=== PATIENT | female | born 1955 | race Caucasian/White ===

== ENCOUNTER → 2017-05-07 | Outpatient (CLI) | payer OTHER ==
[~2017-05-07] MED LIST: AMLO2.5T PO; CEPH-460 PO; CITA20TA4 PO; IBUP800T23 PO; LISI20TA PO; PRED-503 PO
[2017-05-07 09:22] LABS: BLOOD, URINE NEG (NEG); GLUCOSE,URINE NEG (NEG); KETONE, URINE NEG (NEG); NITRITE,URINE NEG (NEG); PH, URINE 6.5 (5.0-8.5); SQUAMOUS EPITHELIAL CELL URINE <1 /hpf (0-5); URINE COLOR COLORLESS (YELLW/STRAW)
[2017-05-07 09:23] LABS: COMMENT (UR) CULT NOT INDICATED; CULTURE IF INDICATED CULT NOT INDICATED
[2017-05-07 09:28] LABS: AUTOMATED NEUTROPHIL # 2.6 TH/MM3 (1.8-7.7); BASOPHIL # 0.1 TH/MM3 (0-0.2); BASOPHIL % 2.5 % (0.0-2.0); EOSINOPHIL # 0.2 TH/MM3 (0-0.4); EOSINOPHIL % 3.9 % (0.0-4.0); HEMATOCRIT 39.1 % (35.0-46.0); HEMO FLAGS DIFF FINAL; LYMPH % 35.9 % (9.0-44.0); LYMPHOCYTE # 1.8 TH/MM3 (1.0-4.8); MEAN CELL VOLUME 85.4 FL (80.0-100.0); MEAN CORPUSCULAR HEMOGLOBIN 28.3 PG (27.0-34.0); MEAN CORPUSCULAR HGB CONC 33.2 % (32.0-36.0); MONO % 4.9 % (0.0-8.0); NEUT % 52.8 % (16.0-70.0); PLATELET COUNT 224 TH/MM3 (150-450); RED BLOOD COUNT 4.57 MIL/MM3 (4.00-5.30); RED CELL DISTRIBUTION WIDTH 13.7 % (11.6-17.2)
[2017-05-07 09:53] LABS: ANION GAP 4 MEQ/L (5-15); AST (GOT) 14 U/L (15-37); BLOOD UREA NITROGEN 19 MG/DL (7-18); CHLORIDE 107 MEQ/L (98-107); GLOMERULAR FILTRATION RATE 91 ML/MIN (>89); GLUCOSE,FASTING 106 MG/DL (74-99); POTASSIUM 3.9 MEQ/L (3.5-5.1); SODIUM (NA) 140 MEQ/L (136-145)
[2017-05-07 10:04] LABS: ALKALINE PHOSPHATASE 49 U/L (45-117); ALT (GPT) 23 U/L (10-53); FREE T4 0.85 NG/DL (0.76-1.46); LDL CHOLESTEROL 139 MG/DL (0-99); TOTAL BILIRUBIN ADULT 0.7 MG/DL (0.2-1.0)
== END ==
LOC: CLAB 08:50
PROVIDERS: ATTEND Nurse Practitioner Family
DX: F41.9 Anxiety disorder, unspecified (principal); I10 Essential (primary) hypertension
CPT/HCPCS: 36415; 80053; 80061; 81001; 84439; 84443; 85025; 86803

== ENCOUNTER → 2017-10-15 | Outpatient (CLI) | payer OTHER ==
[~2017-10-15] MED LIST changes: +AMLO5TAB2 PO; +IBUP1TAB7 PO; -IBUP800T23 PO; +PRAV20TA2 PO
[2017-10-15 10:27] LABS: PROTHROMBIN TIME - PATIENT 10.3 SEC (9.8-11.6)
[2017-10-15 10:27] LABS: AUTOMATED NEUTROPHIL # 2.8 TH/MM3 (1.8-7.7); BASOPHIL % 0.6 % (0.0-2.0); EOSINOPHIL # 0.2 TH/MM3 (0-0.4); EOSINOPHIL % 4.5 % (0.0-4.0); HEMOGLOBIN 12.9 GM/DL (11.6-15.3); LYMPH % 31.5 % (9.0-44.0); LYMPHOCYTE # 1.5 TH/MM3 (1.0-4.8); MEAN CELL VOLUME 86.1 FL (80.0-100.0); MEAN CORPUSCULAR HEMOGLOBIN 28.4 PG (27.0-34.0); MEAN PLATELET VOLUME 9.6 FL (7.0-11.0); MONO % 5.3 % (0.0-8.0); MONOCYTE # 0.3 TH/MM3 (0-0.9); NEUT % 58.1 % (16.0-70.0); PLATELET COUNT 249 TH/MM3 (150-450); RED BLOOD COUNT 4.52 MIL/MM3 (4.00-5.30); RED CELL DISTRIBUTION WIDTH 13.3 % (11.6-17.2); WHITE BLOOD COUNT 4.7 TH/MM3 (4.0-11.0)
[2017-10-15 11:11] LABS: BICARBONATE 28.9 MEQ/L (21.0-32.0); CALCIUM 8.9 MG/DL (8.5-10.1); CREATININE 0.72 MG/DL (0.50-1.00)
== END ==
LOC: CLAB 09:48
PROVIDERS: ATTEND Nurse Practitioner Family
DX: Z01.818 Encounter for other preprocedural examination (principal)
CPT/HCPCS: 36415; 80048; 85025; 85610; 85730

== ENCOUNTER → 2017-10-29 | Outpatient (CLI) | payer OTHER ==
[2017-10-29 09:29] LABS: AUTOMATED NEUTROPHIL # 3.4 TH/MM3 (1.8-7.7); BASOPHIL # 0.1 TH/MM3 (0-0.2); BASOPHIL % 1.3 % (0.0-2.0); EOSINOPHIL # 0.3 TH/MM3 (0-0.4); EOSINOPHIL % 4.7 % (0.0-4.0); HEMATOCRIT 39.7 % (35.0-46.0); HEMOGLOBIN 13.2 GM/DL (11.6-15.3); LYMPH % 29.4 % (9.0-44.0); LYMPHOCYTE # 1.7 TH/MM3 (1.0-4.8); MEAN CELL VOLUME 85.8 FL (80.0-100.0); MEAN CORPUSCULAR HEMOGLOBIN 28.5 PG (27.0-34.0); MEAN CORPUSCULAR HGB CONC 33.2 % (32.0-36.0); MEAN PLATELET VOLUME 9.1 FL (7.0-11.0); MONO % 4.7 % (0.0-8.0); MONOCYTE # 0.3 TH/MM3 (0-0.9); NEUT % 59.9 % (16.0-70.0); PLATELET COUNT 238 TH/MM3 (150-450); RED BLOOD COUNT 4.63 MIL/MM3 (4.00-5.30); RED CELL DISTRIBUTION WIDTH 13.5 % (11.6-17.2); WHITE BLOOD COUNT 5.7 TH/MM3 (4.0-11.0)
[2017-10-29 09:33] LABS: BACTERIA, URINE MANY /hpf; BILIRUBIN, URINE NEG (NEG); BLOOD, URINE NEG (NEG); GLUCOSE,URINE NEG (NEG); KETONE, URINE NEG (NEG); MUCUS URINE FEW /lpf (OCC); NITRITE,URINE NEG (NEG); SQUAMOUS EPITHELIAL CELL URINE 1 /hpf (0-5); URINE COLOR YELLOW (YELLW/STRAW); URINE LEUKOCYTE ESTERASE NEG (NEG)
[2017-10-29 09:47] LABS: BICARBONATE 29.5 MEQ/L (21.0-32.0); CREATININE 0.7 MG/DL (0.50-1.00)
--- NOTE | 2017-10-29 10:03 | RADRPT ---
EXAM DATE/TIME: 10/29/2017 09:28 [facility] COMPARISON: No previous studies available for comparison. INDICATIONS : Evaluate for pneumonia, pneumothorax, and communicable diseases. Pre-op left knee replacement. MEDICAL HISTORY : None. SURGICAL HISTORY : None. ENCOUNTER: Initial ACUITY: 1 day PAIN SCORE: 0/10 LOCATION: Bilateral chest FINDINGS: PA and lateral views of the chest demonstrate the lungs to be symmetrically aerated without evidence of mass, infiltrate or effusion. The cardiomediastinal contours are unremarkable. Osseous structure s are intact. CONCLUSION: No acute disease. Fady Kaur MD FACR on October 29, 2017 at 10:01 Board Certified Radiologist. This report was verified electronically.
--- NOTE | 2017-10-29 20:58 | EKG ---
Date Performed: 10/29/2017 Time Performed: 08:58:07 PTAGE: 62 years EKG: Sinus rhythm LOW QRS VOLTAGE IN PRECORDIAL LEADS BORDERLINE ECG NO PREVIOUS TRACING DOCTOR: Ke Winters Interpretating Date/Time 10/29/2017 20:57:21
== END ==
LOC: CPRE 08:26
PROVIDERS: ATTEND Orthopaedic Surgery Sports Medicine
DX: Z01.810 Encounter for preprocedural cardiovascular examination (principal); Z01.812 Encounter for preprocedural laboratory examination; Z01.818 Encounter for other preprocedural examination; M79.609 Pain in unspecified limb; B96.20 Unspecified Escherichia coli [E. coli] as the cause of diseases classified elsewhere; R94.31 Abnormal electrocardiogram [ECG] [EKG]; Z79.01 Long term (current) use of anticoagulants
CPT/HCPCS: 36415; 71046; 80048; 81001; 85025; 85610; 85730; 87077; 87086; 87186; 93005

== ENCOUNTER 2017-11-13 06:01 | Inpatient (IN) | payer OTHER ==
[~2017-11-13] VITALS: Ht 149.9 cm; Wt 66.5 kg
[~2017-11-13 06:01] MED LIST changes: -AMLO5TAB2 PO; -CEPH-460 PO; -PRAV20TA2 PO; -PRED-503 PO
[2017-11-13] MEDS ORDERED: METOPROLOL TARTRATE 25 MG TAB PO PRN (06:45)
[2017-11-13] MEDS ORDERED: VANCOMYCIN 1 GM/200 ML PREMIX ON-CALL IV SCH (06:45)
[2017-11-13] MEDS ORDERED: SODIUM CHLORID 0.9% 500 ML IV PRN (06:45)
[2017-11-13] MEDS ORDERED: LACTATED RINGER'S 1000 ML IV PRN (06:45)
[2017-11-13] MEDS ORDERED: ceFAZolin 2 GM PREMIX 50 ML IV SCH (06:45)
[2017-11-13] MEDS ORDERED: CHLORHEXIDINE GLUCONATE 2 % 1 PACK (2 CLOTHS) TOPICAL PRN (06:45)
[2017-11-13] MEDS ORDERED: CHLORHEXIDINE GLUCONATE 4% SOLN 120 ML BTL TOPICAL SCH (06:45)
[2017-11-13] MEDS ORDERED: POVIDONE IODINE 5% (ANTISEPSIS KIT) 4 APPLICATIONS EACH NARE PRN (06:45)
[2017-11-13 06:52] LABS: BILIRUBIN, URINE NEG (NEG); BLOOD, URINE NEG (NEG); GLUCOSE,URINE NEG (NEG); KETONE, URINE NEG (NEG); NITRITE,URINE NEG (NEG); SQUAMOUS EPITHELIAL CELL URINE <1 /hpf (0-5); URINE COLOR YELLOW (YELLW/STRAW); URINE LEUKOCYTE ESTERASE NEG (NEG)
[2017-11-13] MEDS ORDERED: GENTAMICIN SULFATE 80 MG/2 ML VIAL ONE (07:22)
[2017-11-13 07:34] VITALS: PULSE 76
[2017-11-13] MEDS ORDERED: MIDAZOLAM HCL 2 MG/2 ML VIAL ONE (07:38)
[2017-11-13] MEDS ORDERED: BUPIVACAINE LIPOSOME PF 1.3% 20 ML VIAL ONE ×2 (07:39→10:15)
[2017-11-13] MEDS ORDERED: SODIUM CHLORIDE 0.9% IV SCH (08:00)
[2017-11-13] MEDS ORDERED: EXPAREL PERI-ARTICULAR INJECTION (TOTAL VOL. 60 ML) P-ARTICULR SCH ×2 (08:00)
[2017-11-13] MEDS ORDERED: TRANEXAMIC ACID IV SCH (08:00)
[2017-11-13] MEDS ORDERED: MIDAZOLAM HCL 2 MG/2 ML VIAL IV PUSH ONE (10:15)
--- NOTE | 2017-11-13 10:33 | PD.OP ---
Operative Report Preoperative Diagnosis: (1) Osteoarthritis of left knee Postoperative Diagnosis: (1) Osteoarthritis of left knee Procedure: Anesthesia: Left Total Knee Arthroplasty Surgeon: Virgilio Gamez MD Observer Gravity Prospecting(s): Tony NORRIS Operation and Findings: see dictation Virgilio Gamez MD Nov 13, 2017 10:33
[2017-11-13] MEDS ORDERED: Post-op Orders (for Pharmacy) XX ONE (10:45)
[2017-11-13] MEDS ORDERED: SODIUM CHLORIDE 0.9% FLUSH 10 ML FLUSH IV FLUSH PRN (10:45)
[2017-11-13] MEDS ORDERED: *MEPERIDINE 25 MG INJ VIAL PERIprocedural Use ONLY ONE (10:58)
[2017-11-13] MEDS ORDERED: DO NOT ADM ANY ANTICOAGULANT DRUGS PRN (11:05)
[2017-11-13] MEDS ORDERED: *morphine SULFATE 8 MG/ML PERIprocedure ONLY ONE (11:21)
[2017-11-13] MEDS ORDERED: *morphine SULFATE 4 MG/ML PERIprocedure ONLY ONE ×2 (11:31→13:42)
--- NOTE | 2017-11-13 11:40 | RADRPT ---
EXAM DATE/TIME: 11/13/2017 12:11 [facility] COMPARISON: No previous studies available for comparison. INDICATIONS : Post left knee arthroplasty MEDICAL HISTORY : Arthritis. SURGICAL HISTORY : Total knee replacement, left. ENCOUNTER: Initial ACUITY: 1 day PAIN SCORE: 6/10 LOCATION: Left Knee FINDINGS: Two view examination of the left knee demonstrates the patient had a total knee arthroplasty in excel lent position. There no visible complications. CONCLUSION: Status post total knee arthroplasty without complication. Irwin Flores MD on November 13, 2017 at 11:37 Board Certified Radiologist. This report was verified electronically.
[2017-11-13] MEDS ORDERED: ALUMINUM/MAGNESIUM/SIMETH 30 ML CUP PO PRN (12:00)
[2017-11-13] MEDS ORDERED: TRANEXAMIC ACID INJ 1,000 MG in SODIUM CHLORIDE 0.9% INJ 100 ML IV SCH (12:00)
[2017-11-13] MEDS ORDERED: ONDANSETRON HCL 4 MG/2 ML VIAL IVP PRN (12:00)
[2017-11-13] MEDS ORDERED: SENNOSIDES 8.6 MG TAB PO PRN (12:00)
[2017-11-13] MEDS ORDERED: MAGNESIUM HYDROXIDE SUSP 30 ML CUP PO PRN (12:00)
[2017-11-13] MEDS ORDERED: BISACODYL 10 MG SUPP RECTAL PRN (12:00)
[2017-11-13] MEDS ORDERED: ONDANSETRON HCL 4 MG/2 ML VIAL IV PUSH ONE (12:00)
[2017-11-13] MEDS ORDERED: HYDROmorphone HCL PF 2 MG/ML VIAL IV PUSH PRN (12:00)
[2017-11-13] MEDS ORDERED: PROPOFOL 200 MG/20 ML AMP IV ONE (12:00)
[2017-11-13] MEDS ORDERED: LACTULOSE SYRUP 20 GM/30 ML CUP PO PRN (12:00)
[2017-11-13] MEDS: LACTATED RINGER'S 1000 ML INJ 1,000 ML IV SCH ×2 (12:20→23:04)
[2017-11-13] MEDS: ceFAZolin 2 GM PREMIX 50 ML IV SCH ×2 (14:25→20:51)
[2017-11-13] MEDS ORDERED: ACETAMINOPHEN 325 MG TAB PO PRN (15:00)
--- NOTE | 2017-11-13 15:06 | MP ---
cc: Virgilio Gamez MD DATE OF OPERATION: DATE OF PROCEDURE: 11/13/2014 PREOPERATIVE DIAGNOSIS: Left knee severe osteoarthritis. POSTOPERATIVE DIAGNOSIS: Left knee severe osteoarthritis. PROCEDURE PERFORMED: Left total knee arthroplasty using Nabor and Nabor DePuy size 5 left cruciate retaining femoral component, a size 4 RP tibial component with a 5 mm polyethylene. ANESTHETIC: Blocks and general. SURGEON: Virgilio Gamez MD STAFF TOXICOLOGIST: JR Smith ESTIMATED BLOOD LOSS: 100 mL. DRAINS: None. SPECIMENS: Bony fragments discarded. COMPLICATIONS: None known. INDICATION FOR PROCEDURE: Kayce Stock is a 62-year-old female with severe debilitating left knee osteoarthritis. She has failed conservative measures and presents for left total knee arthroplasty. The risks and benefits and alternatives to treatment have thoroughly been discussed in detail. Informed consent has been obtained. The assistant dean is an advance registered nurse practitioner. His skill set is medically necessary for the performance of the operation. PROCEDURE IN DETAIL: The patient was given blocks in the preop holding area, then brought to the operating room and placed under general anesthesia. The left lower extremity was prepped and draped in the usual sterile fashion. IV antibiotics were given. Timeout was completed. A slightly medial to midline incision was made, taken through subcutaneous tissue. Hemostasis obtained with use of electrocautery. A medial parapatellar approach was used with subperiosteal dissection about the proximal tibia. The severe [id number] degenerative joint osteoarthritis was noted. We addressed the patella, measured 22 mm thick and was trimmed back to 13 mm and sized for a 35 mm patellar component. Then, retractors placed about the knee, distal starting hole made, intramedullary guide on the femur. A 6-degree angle, 9 mm cut. We originally sized this for a size 6 and ultimately we lowered it to a size 7. Anterior, posterior chamfer cuts were made. Sulcus cut was made. The knee was subluxed anteriorly and the meniscal fragments were resected. We used the extramedullary guide for the tibial cut, 2 mm cut medially. We sized the tibia and a size 4 ultimately was the size. We proceeded with removing the posterior osteophytes and injecting long-term Exparel and Marcaine in the back of the knee, then confirmed our ligamentous balance and did our trial reduction. Excellent range of motion and stability. Size 35 patella. Patellar components made, distal drill holes in the femur made, determination of the tibial rotation and the finishing cuts in the tibia were made. All components were placed on the field. We used antibiotic irrigation, pulse lavage. We pressurized cement into the tibia. We removed residual cement. The knee was placed in full extension. Patellar component placed with patellar clamp. We proceeded to remove residual cement at the edge of the prosthesis. After 10 minutes, the tourniquet was let down and the cement was hardened before 15 minutes, checked the edge of the prosthesis throughout, obtained hemostasis, irrigated out again, copious amounts of irrigation. Hemostasis was good. Proceeded to close in layers with absorbable, suture subcuticular on the skin. Steri-Strips were applied. Sterile dressing applied. The patient was awakened and returned to the recovery room in stable condition. MD RENETTA Dupont/SAVAGE , 02:34 PM , 03:06 PM
[2017-11-13] MEDS: oxyCODONE/ACETAMINOPHEN 5 MG/325 MG TAB PO PRN ×2 (15:12→20:56)
[2017-11-13 15:48] VITALS: BP 158/74; PULSE 97; RESP 18; TEMP 98.4; O2SAT 98
--- NOTE | 2017-11-13 16:56 | PD.CONS ---
[facility] Request[facility] By [facility]opedic service Reason for Consult Medical management history of hypertension Primary Care Physician Dr. Briggs Diagnoses: History of Present Illness Patient is a very pleasant 62-year-old female with known history of hypertension mild anxiety disorder who is admitted under orthopedic services and underwent left total knee arthroplasty. Per patient has been having pain on the left knee ongoing for the past 2 years and for the past 6 months has been having increasing difficulty standing and walking. On imaging patient was told it was bone to bone "". Finally admitted here and underwent left total knee arthroplasty. Patient denies any history of heart CVA or CAD. States some mild anxiety disorder for which she takes the citalopram. Otherwise hypertension controlled on medications. Denies any chest pain, shortness of breath bleeding tendencies leg swelling orthopnea. Review of Systems Constitutional: DENIES: Fever, Weight loss, Chills, Change in appetite Eyes: DENIES: Blurred vision, Double Vision Ears, nose, mouth, throat: DENIES: Tinnitus, Ear Pain, Epistaxis, Odynophagia Respiratory: DENIES: Cough, Hemoptysis, Sputum production, Shortness of breath Cardiovascular: DENIES: Chest pain, Palpitations, Dyspnea on Exertion, Lower Extremity Edema, Orthopnea Gastrointestinal: DENIES: Black stools, Bloody stools, Difficulty Swallowing, Anorexia Genitourinary: DENIES: Urgency, Hematuria, Vaginal discharge Musculoskeletal: COMPLAINS OF: Joint Swelling (Left knee pain), DENIES: Joint pain, Stiffness Integumentary: DENIES: Pruritus Hematologic/lymphatic: DENIES: Bruising Immunologic/allergic: DENIES: Urticaria Neurologic: DENIES: Headache, Speech Problems, Tremor Psychiatric: DENIES: Suicidal Ideation, Homicidal Ideation Past Family Social History Allergies: Coded Allergies: No Known Allergies (Unverified Allergy, Unknown, 11/13/17) Past Medical History Hypertension Mild anxiety disorder Past Surgical History No major surgeries except for 2 section Reported Medications As outpatient on amlodipine Hydrochlorothiazide/lisinopril Citalopram Active Ordered Medications Percocet Dilaudid as needed aspirin 81 mg twice daily Plus home meds Family History Noncontributory Social History Denies smoking, occasional alcohol wine Physical Exam Vital Signs Vital Signs Date Time Temp Pulse Resp B/P (MAP) Pulse Ox O2 Delivery O2 Flow Rate FiO2 11/13/17 16:12 18 11/13/17 15:48 98.4 97 18 158/74 (102) 98 11/13/17 14:00 95 14 145/68 (93) 97 Nasal Cannula 2 11/13/17 12:00 98.2 95 18 144/70 (94) 96 Nasal Cannula 3 11/13/17 11:45 92 16 145/69 (94) 95 Nasal Cannula 3 11/13/17 11:30 93 16 140/66 (90) 95 Nasal Cannula 3 11/13/17 11:15 85 20 152/58 (89) 95 Nasal Cannula 3 11/13/17 10:58 97.8 88 18 143/92 (109) 97 Nasal Cannula 3 11/13/17 07:34 99 Nasal Cannula 2 11/13/17 07:34 76 11/13/17 07:07 98.1 75 18 141/79 (99) 97 Physical Exam GENERAL: in no apparent distress. SKIN: No rashes,. Cool and dry. HEAD: Atraumatic. Normocephalic. No temporal or scalp tenderness. EYES: Pupils equal round and reactive. Extraocular motions intact. No scleral icterus. No injection or drainage. ENT: Nose without bleeding, Throat without erythema,. Airway patent. NECK: Trachea midline. No JVD or lymphadenopathy. Supple, nontender, no meningeal signs. CARDIOVASCULAR: Regular rate and rhythm without murmurs, gallops, or rubs. RESPIRATORY: Clear to auscultation. Breath sounds equal bilaterally. No wheezes , rales, or rhonchi. GASTROINTESTINAL: Abdomen soft, non-tender, nondistended. No hepato-splenomegaly , or palpable masses. No guarding. MUSCULOSKELETAL: Extremities without clubbing, cyanosis, or edema. Left knee postop dressing in place NEUROLOGICAL: Awake and alert. Cranial nerves II through XII intact. Motor and sensory grossly within normal limits. Five out of 5 muscle strength in all muscle groups. Normal speech. Laboratory Laboratory Tests Test 11/13/17 06:39 Urine Color YELLOW Urine Turbidity CLEAR Urine pH 5.0 Urine Specific [place] 1.020 Urine Protein NEG Urine Glucose (UA) NEG Urine Ketones NEG Urine Occult Blood NEG Urine Nitrite NEG Urine Bilirubin NEG Urine Urobilinogen LESS THAN 2.0 Urine Leukocyte Esterase NEG Urine RBC LESS THAN 1 Urine WBC 2 Urine Squamous Epithelial Cells <1 Microscopic Urinalysis Comment CULT NOT INDICATED Imaging Last Impressions Knee X-Ray 11/13/17 0000 Signed Impressions: Service Date/Time: October 12:11 - CONCLUSION: Status post total knee arthroplasty without complication. Irwin Flores MD Assessment and Plan Assessment and Plan 62-year-old female Status post left total knee arthroplasty As needed pain meds per primary service PT OT daily Hypertension. Continue on amlodipine, hydrochlorothiazide/lisinopril Mild anxiety disorder. Continue citalopram. DVT prophylaxis patient started on aspirin 81 mg twice daily per orthopedic services. Thank you for this consult will follow patient in-house with you Case management consulted for discharge planning patient prefers to go home with home PT. Santa Rouse MD Nov 13, 2017 16:56
[2017-11-13 19:33] VITALS: BP 156/78; PULSE 103; RESP 17; TEMP 98.3; O2SAT 97
[2017-11-13 19:57] VITALS: O2SAT 98
[2017-11-13] MEDS: DOCUSATE SODIUM 50 MG/SENNA 8.6 MG TAB PO SCH (20:51)
[2017-11-13] MEDS: ASPIRIN EC 81 MG TABEC PO SCH (20:51)
[2017-11-14] VITALS (7 sets, daily range): BP systolic 116–168; BP diastolic 59–81; PULSE 85–101; RESP 17–18; TEMP 98.4–99.2; O2SAT 93–98
[2017-11-14] MEDS: ceFAZolin 2 GM PREMIX 50 ML IV SCH (01:23)
[2017-11-14] MEDS: oxyCODONE/ACETAMINOPHEN 5 MG/325 MG TAB PO PRN ×5 (01:32→21:56)
[2017-11-14] MEDS: HYDROCHLOROTHIAZIDE 12.5 MG CAP PO SCH (07:58)
[2017-11-14] MEDS: LISINOPRIL 20 MG TAB PO SCH (07:58)
[2017-11-14] MEDS: DOCUSATE SODIUM 50 MG/SENNA 8.6 MG TAB PO SCH ×2 (07:58→21:53)
[2017-11-14] MEDS: CITALOPRAM HYDROBROMIDE 20 MG TAB PO SCH (07:58)
[2017-11-14] MEDS: amLODIPine BESYLATE 5 MG TAB PO SCH (07:58)
[2017-11-14] MEDS: ASPIRIN EC 81 MG TABEC PO SCH ×2 (07:59→21:53)
[2017-11-14] MEDS: LACTATED RINGER'S 1000 ML INJ 1,000 ML IV SCH (11:34)
--- NOTE | 2017-11-14 12:43 | HHI.PR ---
Subjective Remarks motivated with therapy + pain with weightbearing and walking- po pain meds helping Objective Vitals Vital Signs Date Time Temp Pulse Resp B/P (MAP) Pulse Ox O2 Delivery O2 Flow Rate FiO2 11/14/17 11:44 98.4 88 18 128/59 (82) 96 11/14/17 09:00 97 Nasal Cannula 2.00 11/14/17 08:00 98.8 85 18 160/74 (102) 98 11/14/17 04:02 98.9 96 17 168/81 (110) 96 11/14/17 00:12 98.9 101 17 160/79 (106) 94 11/13/17 19:57 98 Nasal Cannula 2.00 11/13/17 19:33 98.3 103 17 156/78 (104) 97 11/13/17 16:12 18 11/13/17 15:48 98.4 97 18 158/74 (102) 98 11/13/17 14:00 95 14 145/68 (93) 97 Nasal Cannula 2 I/O 11/13/17 11/13/17 11/13/17 11/14/17 11/14/17 11/14/17 07:00 15:00 23:00 07:00 15:00 23:00 Intake Total 1080 ml 1720 ml Output Total 400 ml Balance 680 ml 1720 ml Intake Oral 80 ml 480 ml IV Total 200 ml 1240 ml Other 800 ml Output Urine Total 300 ml Estimated Blood Loss 100 ml # Voids 1 2 # Bowel Movements 0 Imaging Last Impressions Knee X-Ray 11/13/17 0000 Signed Impressions: Service Date/Time: October 12:11 - CONCLUSION: Status post total knee arthroplasty without complication. Irwin Flores MD Objective Remarks awake and alert no rales regular rhythm left knee- post op dressing in place Procedures 11/13- left TKA A/P Assessment and Plan 62-year-old female Status post left total knee arthroplasty 11/13 As needed pain meds per primary service PT OT daily Hypertension. Continue on amlodipine, hydrochlorothiazide/lisinopril Mild anxiety disorder. Continue citalopram. DVT prophylaxis patient started on aspirin 81 mg twice daily per orthopedic services. Thank you for this consult will follow patient in-house with you Case management consulted for discharge planning patient prefers to go home with home PT. Santa Rouse MD Nov 14, 2017 12:43
--- NOTE | 2017-11-14 15:35 | PD.ORT.PN ---
Subjective Subjective Remarks patient comfortable Objective Vitals Vital Signs Date Time Temp Pulse Resp B/P (MAP) Pulse Ox O2 Delivery O2 Flow Rate FiO2 11/14/17 11:44 98.4 88 18 128/59 (82) 96 11/14/17 09:00 97 Nasal Cannula 2.00 11/14/17 08:00 98.8 85 18 160/74 (102) 98 11/14/17 04:02 98.9 96 17 168/81 (110) 96 11/14/17 00:12 98.9 101 17 160/79 (106) 94 11/13/17 19:57 98 Nasal Cannula 2.00 11/13/17 19:33 98.3 103 17 156/78 (104) 97 11/13/17 16:12 18 11/13/17 15:48 98.4 97 18 158/74 (102) 98 I/O 11/13/17 11/13/17 11/13/17 11/14/17 11/14/17 11/14/17 07:00 15:00 23:00 07:00 15:00 23:00 Intake Total 1080 ml 1720 ml Output Total 400 ml Balance 680 ml 1720 ml Intake Oral 80 ml 480 ml IV Total 200 ml 1240 ml Other 800 ml Output Urine Total 300 ml Estimated Blood Loss 100 ml # Voids 1 2 # Bowel Movements 0 Objective Remarks left lower extremity Joel wrap in place Homans sign negative Motor and sensory neurologic exam intact Good capillary refill Assessment & Plan Problem List: (1) Osteoarthritis of left knee ICD Codes: M17.12 - Unilateral primary osteoarthritis, left knee Status: Chronic Qualifiers: Qualified Codes: M17.12 - Unilateral primary osteoarthritis, left knee Plan: postop day #1 status post left total knee arthroplasty X-rays are reviewed which show good alignment of total knee arthroplasty Weightbearing as tolerated with daily physical therapy Percocet for pain control 81 mg aspirin twice a day for DVT prophylaxis Discharge home Friday Home health care for RN and PT Virgilio Gamez MD Nov 14, 2017 15:35
[2017-11-14] MEDS ORDERED: OXYC1TAB63 PO (17:12)
[2017-11-14] MEDS ORDERED: ECASA81 PO (17:12)
[2017-11-14] MEDS ORDERED: CPMMACHINE (17:14)
[2017-11-14] MEDS ORDERED: WALKER WHEELS/F1 MIS (17:14)
--- NOTE | 2017-11-14 17:17 | HHI.FF ---
Face to Face Verification Diagnosis: (1) Osteoarthritis of left knee Physical Therapy Gait training Knee: Total knee, Protocol: Left, Gait training, Full weight bearing Right LE Weight Bearing: WB as tolerated Right LE Range of Motion: Active ROM Left LE Weight Bearing: WB as tolerated Left LE Range of Motion: Active ROM Nursing Dressing Changes: Do not change dressing Additional Instructions Leave dressing in place 2 weeks. If there is significant drainage, remove dressing. Clean with all and apply a new dry dressing daily. I have seen patient Kayce Stock on 11/14/17. My clinical findings support the need for the requested home health care services because: High risk of falls I certify that my clinical findings support that this patient is homebound because: Post-op weakness Tony Aguilera Nov 14, 2017 17:17
[2017-11-15 00:02] VITALS: BP 141/65; PULSE 92; RESP 18; TEMP 99; O2SAT 95
[2017-11-15] MEDS: LACTATED RINGER'S 1000 ML INJ 1,000 ML IV SCH (00:04)
[2017-11-15] MEDS: oxyCODONE/ACETAMINOPHEN 5 MG/325 MG TAB PO PRN (06:28)
[2017-11-15 07:10] VITALS: BP 193/83; PULSE 61; RESP 19; TEMP 97.1; O2SAT 95
--- NOTE | 2017-11-15 07:27 | PD.ORT.PN ---
Subjective Subjective Remarks Progressing well with physical therapy Objective Vitals Vital Signs Date Time Temp Pulse Resp B/P (MAP) Pulse Ox O2 Delivery O2 Flow Rate FiO2 11/15/17 00:02 99.0 92 18 141/65 (90) 95 11/14/17 20:45 21 11/14/17 20:00 98.7 97 18 116/62 (80) 96 11/14/17 16:00 99.2 90 18 130/65 (86) 93 11/14/17 11:44 98.4 88 18 128/59 (82) 96 11/14/17 09:00 97 Nasal Cannula 2.00 11/14/17 08:00 98.8 85 18 160/74 (102) 98 I/O 11/14/17 11/14/17 11/14/17 11/15/17 11/15/17 11/15/17 07:00 15:00 23:00 07:00 15:00 23:00 Intake Total 1720 ml 720 ml 240 ml Balance 1720 ml 720 ml 240 ml Intake Oral 480 ml 720 ml 240 ml IV Total 1240 ml # Voids 2 4 5 # Bowel Movements 0 0 Objective Remarks left lower extremity Joel wrap in place Homans sign negative Motor and sensory neurologic exam intact Good capillary refill Assessment & Plan Problem List: (1) Osteoarthritis of left knee ICD Codes: M17.12 - Unilateral primary osteoarthritis, left knee Status: Chronic Qualifiers: Qualified Codes: M17.12 - Unilateral primary osteoarthritis, left knee Plan: postop day #2 status post left total knee arthroplasty X-rays are reviewed which show good alignment of total knee arthroplasty Weightbearing as tolerated with daily physical therapy Percocet for pain control 81 mg aspirin twice a day for DVT prophylaxis Discharge home today Home health care for RN and PT Huy rGiggs Jr. Nov 15, 2017 07:27
[2017-11-15 07:29] VITALS: BP 138/70; PULSE 97; RESP 18; TEMP 99.3; O2SAT 95
--- NOTE | 2017-11-15 08:12 | HHI.PR ---
Subjective Remarks good po no pain complains looking forward to going home today Objective Vitals Vital Signs Date Time Temp Pulse Resp B/P (MAP) Pulse Ox O2 Delivery O2 Flow Rate FiO2 11/15/17 07:29 99.3 97 18 138/70 (92) 95 11/15/17 00:02 99.0 92 18 141/65 (90) 95 11/14/17 20:45 21 11/14/17 20:00 98.7 97 18 116/62 (80) 96 11/14/17 16:00 99.2 90 18 130/65 (86) 93 11/14/17 11:44 98.4 88 18 128/59 (82) 96 11/14/17 09:00 97 Nasal Cannula 2.00 I/O 11/14/17 11/14/17 11/14/17 11/15/17 11/15/17 11/15/17 07:00 15:00 23:00 07:00 15:00 23:00 Intake Total 1720 ml 720 ml 240 ml Balance 1720 ml 720 ml 240 ml Intake Oral 480 ml 720 ml 240 ml IV Total 1240 ml # Voids 2 4 5 # Bowel Movements 0 0 Imaging Last Impressions Knee X-Ray 11/13/17 0000 Signed Impressions: Service Date/Time: October 12:11 - CONCLUSION: Status post total knee arthroplasty without complication. Irwin Flores MD Objective Remarks awake and alert no rales regular rhythm left knee- post op dressing in place good peripheral pulses Procedures 11/13- left TKA A/P Assessment and Plan 62-year-old female Status post left total knee arthroplasty 11/13 Ortho/PT ff Hypertension. Continue on amlodipine, hydrochlorothiazide/lisinopril Mild anxiety disorder. Continue citalopram. DVT prophylaxis patient started on aspirin 81 mg twice daily per orthopedic services. Home today with home PT advise PCP ff up - Santa Lowe MD Nov 15, 2017 08:12
[2017-11-15] MEDS: CITALOPRAM HYDROBROMIDE 20 MG TAB PO SCH (10:04)
[2017-11-15] MEDS: ASPIRIN EC 81 MG TABEC PO SCH (10:05)
[2017-11-15] MEDS: HYDROCHLOROTHIAZIDE 12.5 MG CAP PO SCH (10:05)
[2017-11-15] MEDS: LISINOPRIL 20 MG TAB PO SCH (10:05)
[2017-11-15] MEDS: DOCUSATE SODIUM 50 MG/SENNA 8.6 MG TAB PO SCH (10:05)
[2017-11-15] MEDS: amLODIPine BESYLATE 5 MG TAB PO SCH (10:05)
== END 2017-11-15 11:22 | disposition home health service (06) | DRG 470 ==
LOC: HSDI 06:01 → N06B 14:59
PROVIDERS: ADMIT Orthopaedic Surgery Sports Medicine; ATTEND Orthopaedic Surgery Sports Medicine
PROC: 3E0T3BZ Introduction of Anesthetic Agent into Peripheral Nerves and Plexi, Percutaneous Approach (ICD-10-PCS; 2017-11-13)
PROC: 0SRD0J9 Replacement of Left Knee Joint with Synthetic Substitute, Cemented, Open Approach (ICD-10-PCS; principal; 2017-11-13 08:20)
DX: M17.12 Unilateral primary osteoarthritis, left knee (principal); I10 Essential (primary) hypertension; F41.9 Anxiety disorder, unspecified
CPT/HCPCS: 73560; 81001; 86850; 86900; 86901; 94150; C1776; C9290; J0690; J1580; J2175; J2250; J2270; J2405; J3010; J3370; J7120; L1830